=== PATIENT | male | born 1960 | race African-American/Black ===

== ENCOUNTER 2024-07-12 16:46 | Emergency (ER) | payer BC, MEDICAID ==
[~2024-07-12] VITALS: Ht 170.2 cm; Wt 88.0 kg
[2024-07-12 17:14] VITALS: O2SAT 99
[2024-07-12] MEDS: HYDROCODONE/ACETAMINOPHEN 5/325MG TABLET PO STA (18:02)
[2024-07-12 18:50] LABS: CHLORIDE 105 mEq/L (98-107); POTASSIUM 3.9 mEq/L (3.5-5.1); SODIUM 136 mEq/L (136-145)
[2024-07-12 18:51] LABS: BASOPHILS % 0.3 % (0.0-2.0); CARBON DIOXIDE 29 mEq/L (21-32); EOSINOPHILS % 1.3 % (0.0-5.0); HEMATOCRIT. 34.3 % (42.0-52.0); HEMOGLOBIN. 11.6 g/dL (14.0-18.0); LYMPHOCYTES % 15.4 % (20.0-50.0); MEAN CORPUSCULAR HEMOGLOBIN 32.3 pg (28.0-32.0); MEAN CORPUSCULAR HGB CONC 33.7 g/dL (31.0-37.0); MEAN CORPUSCULAR VOLUME 95.8 fL (80.0-94.0); MEAN PLATELET VOLUME 7.9 fl (7.4-10.4); PLATELET 279 x1000/uL (130-400); RED BLOOD CELL COUNT 3.58 mill/uL (4.7-6.1); RED CELL DISTRIBUTION WIDTH 15.1 % (11.6-14.6); WHITE BLOOD COUNT 6.8 x1000/uL (4.5-11.0)
[2024-07-12 18:52] LABS: CALCIUM 9.5 mg/dL (8.7-10.4)
[2024-07-12 18:56] LABS: CREATININE 0.8 mg/dL (0.6-1.3); GLUCOSE 109 mg/dL (70-105); UREA NITROGEN BLOOD 15 mg/dL (9-23)
[2024-07-12] MEDS: KETOROLAC 15MG/ML VIAL IM ONE (20:06)
[2024-07-12] MEDS ORDERED: HYDR-4001 MT (20:21)
[2024-07-12] MEDS ORDERED: IBUP-2028 MT (20:21)
[2024-07-12 21:41] VITALS: BP 117/80; PULSE 80; RESP 16; TEMP 36.83628; O2SAT 99
== END 2024-07-12 22:37 | disposition home or self-care (01) ==
LOC: ER 16:46
DX: I89.0 Lymphedema, not elsewhere classified (principal); E11.9 Type 2 diabetes mellitus without complications; I10 Essential (primary) hypertension; Z98.890 Other specified postprocedural states; W18.30XA Fall on same level, unspecified, initial encounter; Y93.89 Activity, other specified; Y92.89 Other specified places as the place of occurrence of the external cause; Y99.8 Other external cause status
CPT/HCPCS: 99285; 93970; 71045; 80048; 83880; 85025; 36415; 73610; 93005; 96372; J1885